=== PATIENT | female | born 1950 | race Caucasian/White ===

== ENCOUNTER 2018-02-04 07:08 | Day surgery (SDC) | payer OTHER ==
[2018-02-04] MEDS ORDERED: SIMETHICONE 40 MG/0.6 ML ML ONE (07:17)
[2018-02-04] MEDS: MIDAZOLAM HCL 5 MG/5 ML VIAL ONE ×2 (09:02→09:15)
[2018-02-04] MEDS: MEPERIDINE HCL/PF 100 MG/ML AMP ONE ×3 (09:02→09:19)
[2018-02-04 14:11] VITALS: BP_SYST 148
== END 2018-02-04 10:15 | disposition home or self-care (01) ==
LOC: SDS 07:08
PROVIDERS: ATTEND Internal Medicine Gastroenterology
DX: Z09 Encounter for follow-up examination after completed treatment for conditions other than malignant neoplasm (principal); K57.30 Diverticulosis of large intestine without perforation or abscess without bleeding; K64.8 Other hemorrhoids; K21.9 Gastro-esophageal reflux disease without esophagitis; K22.70 Barrett's esophagus without dysplasia; K29.50 Unspecified chronic gastritis without bleeding; Z86.010 Personal history of colon polyps
CPT/HCPCS: 36415; 43239; 45378; 87081; 88305; 88312; 88313; J2175; J2250